=== PATIENT | female | born 1950 | race Caucasian/White ===

== ENCOUNTER → 2024-07-17 13:20 | Outpatient (REF) | payer MEDICARE, OTHER, SELFPAY ==
[2024-07-17 14:45] LABS: % Basophils 0.6 % (0-2); % Eosinophils 1.2 % (0-6); % Immature Granulocytes 0.1 % (0-0.5); % Lymphocytes 17.3 % (20.5-51.1); % Monocytes 8.4 % (1.7-9.3); % Neutrophils 72.4 % (42.2-75.2); Absolute Eosinophils 0.1 10^3/uL (0-0.7); Absolute Lymphocytes 1.2 10^3/uL (1.2-3.4); Absolute Monocytes 0.6 10^3/uL (0.1-0.6); Hematocrit 41.1 % (37.0-47.0); Hemoglobin 13.5 g/dL (12.0-16.0); Mean Corp Hgb Conc. 32.8 g/dL (33.0-37.0); Mean Corpuscular Volume 91.3 fL (81.0-99.0); Mean Platelet Volume 10.6 fL (7.4-10.4); Nucleated Red Blood Cells % 0 %; Platelet Count 255 10^3/uL (130-400); Red Cell Dist. Width 13.3 % (11.5-14.5); White Blood Cell Count 6.9 10^3/uL (4.8-10.8)
[2024-07-17 15:07] LABS: ALT (SGPT) 17 U/L (0-35); AST (SGOT) 25 U/L (14-36); Albumin 4.4 g/dl (3.5-5.0); Alkaline Phosphatase 136 U/L (38-126); Amylase 85 U/L (30-110); Blood Urea Nitrogen 11 mg/dl (7-17); Calcium 9.6 mg/dl (8.4-10.2); Carbon Dioxide 30 mmol/L (22-30); Chloride 104 mmol/L (98-107); Direct Bilirubin 0.1 mg/dl (0.0-0.4); GGTP 40 U/L (12-43); Glucose 103 mg/dl (70-99); Lipase 86 U/L (23-300); Potassium 3.9 mmol/L (3.5-5.1); Sodium 140 mmol/L (135-145); Total Bilirubin 0.4 mg/dl (0.2-1.3); Total Protein 6.7 g/dl (6.3-8.2); eGFR > 60.00
== END ==
LOC: REG 13:20
PROVIDERS: FAMILY PHYSICIAN Family Medicine
DX: T86.49 Other complications of liver transplant (principal); K83.1 Obstruction of bile duct
CPT/HCPCS: 36415; 80053; 82150; 82248; 82977; 83690; 85025

== ENCOUNTER 2024-07-22 07:34 | Day surgery (SDC) | payer MEDICARE, OTHER, SELFPAY ==
[2024-07-02 09:53] VITALS: BMI 20.5
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
[2024-07-22] VITALS (15 sets, daily range): BP systolic 83–146; BP diastolic 58–77
[2024-07-22 11:17] LABS: ACT-LR - POC 285 Seconds (116-155)
[2024-07-22 11:40] LABS: ACT-LR - POC 379 Seconds (116-155)
--- NOTE | 2024-07-22 11:45 | ITS.CL.ABL ---
Music [facility]ritic - Ablation
Ablation
Procedure Report:
ELECTROPHYSIOLOGY ABLATION STUDY
DATE:: July 22, 2024�����������������������������REFERRING: Dr. Artur Jimenez
INDICATION: Paroxysmal supraventricular tachycardia in the form of atrial fibrillation.� As above
HISTORY: See H and P.��History of orthotopic liver transplantation and paroxysmal atrial fibrillation
ANTIARRHYTHMIC DRUG: Limited by her transplant regimen
PRE-PROCEDURE OWEN: No intracardiac thrombus
PRESENTING RHYTHM: Sinus bradycardia
'TIME-OUT':��called and confirmed.
SEDATION/ANESTHESIA:��provided via the anesthesia department using general anesthesia (LMA).
INTRAVENOUS/ARTERIAL ACCESS:
Right femoral venous - 8Fr
Left femoral venous - 8 Fr, 6 Fr
Ultrasound guidance for bilateral femoral vein access was utilized by me to obtain access with demonstration of normal anatomy
CHADS-VASC Score:
HAS-Bled Score
PROCEDURE:
1.��A decapolar CS catheter was placed within the CS for mapping and pacing.��This was also used as the reference catheter for the 3-D map.
2. The intracardiac ultrasound catheter was positioned in the RA to identify the FO for targeting of transseptal puncture, assist��in identification of the pulmonary vein ostia, monitoring pre and post ablation pulmonary vein flow velocities,
monitoring for 'bubble' formation during RF application as a sign of thermal injury,��and to monitor for pericardial effusion during mapping and ablation procedure.��There was a trace pericardial effusion preablation and there was no change in size
during and after procedure. �Left atrial size, LV ejection fraction, and pulmonary vein flows were monitored pre and post ablation procedure. The other valves were inspected and found to be free of significant regurgitation or stenosis.
3.��Half of the calculated heparin bolus was administered prior to the first transeptal puncture.��Transseptal puncture was performed to diagnose RA and LA pressure so that safety of LA mapping and ablation could be further assessed, and to access
the left atrium and pulmonary veins for mapping and ablation.��This entailed advancing an 8 Fr SL-1 sheath with dilator into the superior vena cava and withdrawing both (monitoring intracardiac ultrasound, fluoroscopy and tip pressure) with the tip
oriented toward the atrial septum.��The fossa ovalis was engaged (indicated by sudden displacement of the sheath tip as well as tenting of the fossa seen on intracardiac ultrasound).��Left atrial access required a pass with the [place]rough needle
extended.��Left atrial catheter position was confirmed by pressure monitoring (RA mean pressure 8 mm Hg and LA mean presure 12 mm Hg), LA saturation (99%),��as well as fluoroscopy.��The sheath was advanced over the dilator and positioned in the left
atrium.��This procedure was repeated for the Agilis sheath.��The remainder of the calculated heparin bolus was administered and heparin was
infused to maintain ACT at 300 -350 seconds throughout the case.
4.��RA pacing was performed via the proximal decapolar poles and LA pacing was performed via the distal decapolr poles.
5. A quadrapolar catheter was first positioned at the His position for His Bundle recording which was tagged via the 3-D Navex sytem, and then passed to the RVA for RV pacing and recording.
6. The grid and Penta spline placed in each of the LIPV, LSPV, RSPV and the RIPV.��
7.��Next, a 3-D map was created using Navex.���A 3-D reconstructed CT image was compared to the 3-D Navex map to assist in anatomic interpretation, mapping and ablation.��The CT image and the NavX image were fused.
8. A total of 49 lesions were given with the 4 pulmonary veins addressed in [place] and basket pose. Fluoroscopy post was given to the roof, posterior wall, and floor line for isolation of both all 4 pulmonary veins and the posterior wall from the
roof to the floor and once intersect block was confirmed in all 4 pulmonary veins and the posterior wall EP study demonstrated noninducibility for other tachyarrhythmia.
9. Normal sinus node and AV pardeep function noted
TOTAL FLOURO TIME: 16.8 minutes
TOTAL RF DURATION: 0 minutes
REVERSAL OF HEPARIN: 40 mg of protamine, slow IV administration
COMPLICATIONS:
None
Intracardiac US shows no pericardial effusion post ablation.
SUMMARY:��
Complex left atrial mapping and ablation.
Isolation of all 4 pulmonary veins as well as roof line, floor line, and posterior wall substrate modification
RECOMMENDATIONS:
1. Ambulate in 4 hours
2. Resume anticoagulation
3.��Consider same-day discharge
4.��Outpatient follow-up with me in 6 to 8 weeks
Copy to: Dr. [facility]
[2024-07-22] MEDS: DILAUDID 0.25 MG IV (12:28)
[2024-07-22] MEDS: TORADOL 15 MG IV (12:36)
[2024-07-22] MEDS: ACTIGALL 300 MG PO (13:41)
[2024-07-22] MEDS: RAPAMUNE 1 MG PO (13:41)
[2024-07-22] MEDS: MAALOX PLUS 1 TABLET PO (14:31)
[2024-07-22] MEDS: NORCO 7.5/325 1 TABLET PO (14:38)
[2024-07-22] MEDS: NEURONTIN 600 MG PO (14:40)
--- NOTE | 2024-07-22 16:33 | W.PN.UPDATE ---
Update Note
Progress Note Update
73 yo WF s/p PVI (same day). She had some significant chest pressure, gas pain and back pain initially treated with home meds and IV meds which improved t/o the day, sosa diet. EKG SR, b/l groins c/d/i no HT. She will resume Eliquis tonight. Activity
restrictions reviewed. She will f/u Dr. Jimenez in 2 mo. She is for d/c home after 445pm
== END 2024-07-22 17:05 | disposition home or self-care (01) ==
LOC: CATH 07:34
PROVIDERS: ATTENDING PHYSICIAN Internal Medicine Cardiovascular Disease; FAMILY PHYSICIAN Family Medicine
DX: I48.0 Paroxysmal atrial fibrillation (principal); Z94.4 Liver transplant status; R55 Syncope and collapse; E11.9 Type 2 diabetes mellitus without complications; E78.5 Hyperlipidemia, unspecified; I10 Essential (primary) hypertension; I25.10 Atherosclerotic heart disease of native coronary artery without angina pectoris; I25.2 Old myocardial infarction; I47.19 Other supraventricular tachycardia; K74.60 Unspecified cirrhosis of liver; M19.90 Unspecified osteoarthritis, unspecified site; Z79.01 Long term (current) use of anticoagulants; Z79.623 Long term (current) use of mammalian target of rapamycin (mTOR) inhibitor; Z79.84 Long term (current) use of oral hypoglycemic drugs; Z79.899 Other long term (current) drug therapy; Z90.49 Acquired absence of other specified parts of digestive tract; Z95.5 Presence of coronary angioplasty implant and graft; A04.71 Enterocolitis due to Clostridium difficile, recurrent; F41.9 Anxiety disorder, unspecified; F32.A Depression, unspecified
CPT/HCPCS: C1732; C1894; C1730; C1769; 36415; 85347; 86900; 86901; 93005; 93656; 93657; C1733; C1766